=== PATIENT | male | born 1980 | race Caucasian/White ===

== ENCOUNTER 2020-12-22 23:34 | Emergency (ER) | payer OTHER ==
--- NOTE | 2020-12-23 00:39 | CR ---
Indication: Pain after fall Technique: Three views Comparison: None Findings: Bones: Slight convexity at the dorsal aspect of the wrist on the lateral view although this appears well corticated. No definite acute fracture. Joint spaces: Unremarkable. Soft tissues: Mild soft tissue swelling. Dictated by Enmanuel Daniel MD @ 12/23/2020 12:37:28 AM (Electronically Signed)
[2020-12-23] MEDS ORDERED: Ketorolac 15 MG/ML SDV IM ONE (01:46)
--- NOTE | 2020-12-23 01:46 | EDM.PDOC ---
ED HPI GENERAL MEDICAL PROBLEM - General Chief Complaint: Upper Extremity Injury/Pain Stated Complaint: LT ARM INJURY Time Seen by Provider: 12/23/20 01:43 - History of Present Illness INITIAL COMMENTS - FREE TEXT/NARRATIVE: CHIEF COMPLAINT(S): Left wrist pain HISTORY OF PRESENT ILLNESS: This is a 40-year-old man without any significant past medical history who presents to the emergency department with left wrist p ain. The patient states that he slipped on ice and fell onto his left wrist. He states that he is currently experiencing 7 out of 10 throbbing pain of his left wrist. He states that the pain is exacerbated by movement. He denies any numbness, tingling, weakness. He states that there are no relieving factors. He has not yet tried anything for the pain. He denies any other injury. He states that this started immediately prior to arrival. REVIEW OF SYSTEMS: Constitutional: Denies fever, chills. Eyes: Denies eye pain Ears, Nose, Mouth, & Throat: Denies earache Cardiovascular: Denies chest pain Respiratory: Denies shortness of breath Gastrointestinal: Denies Nausea, vomiting, diarrhea, hematochezia. Genitourinary: Denies hematuria Skin:Denies a rash MSK: Left wrist pain Neurological: Denies blurred vision Psychiatric: Denies depression PAST MEDICAL HISTORY: As per history of present illness and as reviewed below otherwise noncontributory. SURGICAL HISTORY: As per history of present illness and as reviewed below otherwise noncontributory. SOCIAL HISTORY: As per history of present illness and as reviewed below otherwise noncontributory. FAMILY HISTORY: As per history of present illness and as reviewed below otherwise noncontributory. EXAMINATION OF ORGAN SYSTEMS/BODY AREAS: Constitutional: Blood pressure was 126/77, heart rate 67, respiratory rate 17 with an oxygen saturation of 98% on room air. Temperature 36.2 General: Well-appearing man who is in no acute distress Psychiatric: Appropriate mood and affect. Eyes: No scleral icterus or conjunctival erythema Cardiovascular: Regular, rate, and rhythm. No gallops, murmurs, or rubs. Bilateral upper extremity pulses symmetric and intact. Respiratory: Lungs clear to auscultation bilaterally. No wheezes, rales, or rhonchi. Musculoskeletal: The patient has lateral wrist tenderness on the left. This is on the posterior aspect. No swelling or obvious deformity. In addition there is anatomical snuffbox tenderness. The patient is able to make an O and touch all his fingers with his left thumb. Skin: No lesions or abrasions. Neurological: Alert, GCS 15 distal sensation is intact MEDICAL DECISION MAKING AND COURSE IN THE ED WITH INTERPRETATION/REVIEW OF DIAGNOSTIC STUDIES: This is a 40-year-old man without any significant past medical history who presents to the emergency department with left wrist pain on the lateral aspect with anatomical snuffbox tenderness. At this time we will obtain a wrist x-ray to evaluate for any fracture. We will provide the patient with Toradol for pain relief. DDx: Scaphoid fracture, wrist fracture, dislocation, soft tissue injury The radiological images were viewed by myself along with reading the report from the radiologist. Left wrist x-ray reveals mild soft tissue swelling with a slight convexity at the dorsal aspect on the wrist on the lateral view although this appears well- corticated. No definitive acute fracture. After imaging given the x-ray findings I did discuss that I would like to place him in a thumb spica splint which will help with the scaphoid tenderness in addition to the slight convexity seen on the x-ray. He was amenable to this plan. Therefore we did place the patient in a thumb spica splint. He was given strict return precautions. The patient is a resident of [facility] and I did discuss that it seems he returns to [facility] and he needs to contact an orthopedic surgeon for reevaluation in 5 to 7 days. He was amenable to this plan Post thumb spica splint placement reveals a capillary refill less than 2 seconds in all distal fingers with distal sensation intact DISPOSITION: The patient was discharged home in stable condition. The patient will follow up with orthopedics in 5 to 7 days CONDITION: Fair PROCEDURES: None FINAL IMPRESSION(S)/DIAGNOSES: 1. Acute left scaphoid tenderness. 2. Acute distal wrist fracture DME: Thumb spica splint on the left Indication: Scaphoid tenderness, possible scaphoid fracture Benefit: Immobilization Duration: Until follow-up with hand/orthopedic surgery Rufino Fields M.D. Left Wrist Pain Score (Numeric/FACES): 7 - Related Data Allergies Allergy/AdvReac Type Severity Reaction Status Date / Time No Known Allergies Allergy Verified 12/23/20 01:33 Past Medical History - Past Health History Medical/Surgical History: Denies Medical/Surgical History - Infectious Disease History Infectious Disease History: Reports: Chicken Pox Social & Family History - Family History Family Medical History: No Pertinent Family History - Recreational Drug Use Recreational Drug Use: No Review of Systems - Review of Systems Review Of Systems: See Below ED EXAM, GENERAL - Physical Exam Exam: See Below Course - Vital Signs Last Recorded V/S: Last Vital Signs Temp 36.2 C 12/23/20 01:34 Pulse 67 12/23/20 01:34 Resp 17 12/23/20 01:34 BP 126/77 12/23/20 01:34 Pulse Ox 98 12/23/20 01:34 - Orders/Labs/Meds Meds: Medications Discontinued Medications Generic Name Dose Route Start Last Admin Trade Name Huyq PRN Reason Stop Dose Admin Ketorolac Tromethamine 30 mg 12/23/20 01:46 12/23/20 01:51 Ketorolac 15 Mg/Ml Sdv IM 12/23/20 01:47 30 mg ONETIME ONE Administration Departure - Departure Time of Disposition: 01:43 Disposition: Home, Self-Care 01 Condition: Fair Clinical Impression: Distal end of ulna fracture, closed, Closed fracture of scaphoid - Discharge Information *PRESCRIPTION DRUG MONITORING PROGRAM REVIEWED*: No *COPY OF PRESCRIPTION DRUG MONITORING REPORT IN PATIENT FLORIDALMA: No Instructions: Cast or Splint Care, Adult, [id number], Wrist Fracture Treated With Immobilization, Scaphoid Fracture Referrals: PCP,None [Primary Care Provider] - Forms: ED Department Discharge Additional Instructions: You were evaluated today on an emergent basis. At this time your imaging did not reveal a fracture however it did not rule out a fracture. At this time we are going to assume that there is a fracture of your distal ulna and your scaphoid bone. Please use the thumb spica splint and keep it in place until you follow-up with orthopedics. As discussed we typically recommend 5 to 7-day follow-up however given that you are going to be in [place] in [place] I recommend that you contact your primary care physician in [place] and arrange for orthopedic/hand surgery follow-up. Please return for any new or worsening symptoms. Please use: Tylenol 500-1000mg every 6 hours (DO NOT TAKE MORE THAN 4000mg in 1 day) Ibuprofen 400mg every 6 hours (Take with food as it can cause ulcers, GI upset) Example schedule: 8:00 AM (Tylenol 500-1000mg) 11:00 AM (Ibuprofen 400mg) 2:00 PM (Tylenol 500-1000mg) 5:00 PM (Ibuprofen 400mg) In addition to Tylenol and Motrin you may use over the counter creams such as Voltaren Cream or Lidocaine Cream (Lidoderm) as needed 4 times a day for symptomatic relief. Ice the area 20 minutes 4 times per day [facility] [address], [facility] [address] [place] [address] The patient is informed of any results of their evaluation and diagnostic workup and all questions are answered. They are given discharge instructions and return precautions. The patient is stable for discharge. The patient states they understand and agree with the plan and that they will return if their symptoms get worse or if they have any new concerns. The following information is given to patients seen in the emergency department who are being discharged to home. This information is to outline your options for follow-up care. We provide all patients seen in our emergency department with a follow-up referral. The need for follow-up, as well as the timing and circumstances, are variable depending upon the specifics of your emergency department visit. If you don't have a primary care physician on staff, we will provide you with a referral. We always advise you to contact your personal physician following an emergency department visit to inform them of the circumstance of the visit and for follow-up with them and/or the need for any referrals to a consulting specialist. The emergency department will also refer you to a specialist when appropriate. This referral assures that you have the opportunity for follow-up care with a specialist. All of these measure are taken in an effort to provide you with optimal care, which includes your follow-up. Under all circumstances we always encourage you to contact your private physician who remains a resource for coordinating your care. When calling for follow-up care, please make the office aware that this follow-up is from your recent emergency room visit. If for any reason you are refused follow-up, please contact the [facility] Emergency Department at and asked to speak to the emergency department charge nurse.
== END 2020-12-23 01:55 | disposition home or self-care (01) ==
LOC: MW.ED 23:34
DX: S62.002A Unspecified fracture of navicular [scaphoid] bone of left wrist, initial encounter for closed fracture (principal); S52.602A Unspecified fracture of lower end of left ulna, initial encounter for closed fracture; W00.0XXA Fall on same level due to ice and snow, initial encounter
CPT/HCPCS: 73110; 96372; 99283; J1885